=== PATIENT | male | born 1960 | race Caucasian/White ===

== ENCOUNTER 2020-10-16 10:46 | Outpatient (REF) | payer BC, SELFPAY ==
--- OUTSIDE RECORDS SUMMARY | 2020-10-16 10:51 | XMS_ITS ---
:1960 Author Organization [facility] care Address [address] [place] [address] Care Team Providers Name Role Phone RAFAELA Unavailable Unavailable PROBLEMS Type Condition ICD9-CM Code SSL36-HR Onset Condition SNOMED Code Code Dates Status Problem Gastro-esophageal K21.9 Active 26 6230511 reflux disease without esophagitis Problem Mixed E78.2 Active 798593075 hyperlipidemia Problem Gastritis, K29.70 Active [id number] unspecified, without bleeding ALLERGIES Substance Reaction Event Type Date Status Oxycodone-Acetaminophen Unknown Drug Allergy Sep, Acti ve Vicodin Unknown Drug Allergy Sep, Active Percocet Unknown Drug Allergy Sep, Active Hydrocodone-Acetaminophen Unknown Drug Allergy Sep, Ac tive ENCOUNTERS Encounter Location Date Diagnosis [address] Sep, Low ba ck pain M54.5 and [facility] [place] Abnormal magnus ght loss R63.4 [id number] Sep, [place] [address] Aug, [place] [address] Aug, Pain i n right hip M25.551 [place] [address] Sep, Mixed hyperlipidemia E78.2 [place] [address] 18 Sep, [address] for general adult [facility] [place] [phone] abnormal finding s Z00.[address] Sep, Encoun ter for examination [place], [place] for driving license Z02.4 [address], Encoun [address] for general adult [facility] [place] [address] abnormal finding s Z00.[address] Aug, Unspec ified open wound, [place], [place] right [place], initial [phone] encounter S91.30 1A and Encounter for im munization Z23 [address] Mar, Rectal polyp K62.1 [place] [address] Sep, Encoun ter for general adult [facility] [place] [address] abnormal finding s Z00.[address] Sep, Gastri tis, unspecified, [place], [place] without blee ding K29.70 [phone] IMMUNIZATIONS Vaccine Route Administration Date Status Fluzone Quadrivalent IM Intramuscular Aug 16, 2019 Administer ed Fluzone Quadrivalent IM Intramuscular Sep 15, 2018 Administer ed Tdap-Adult IM Intramuscular Aug 16, 2019 Administered Tdap-Adult Unknown Aug 30, 2011 Administered SOCIAL HISTORY Qualifiers Date Never Smoker REASON FOR REFERRAL FUNCTIONAL STATUS PLAN OF CARE Activity Details Follow Up prn Reason: VITAL SIGNS Temperature 95.6 degrees Fahrenheit 2020-09-25 Temperature 96.4 degrees Fahrenheit 2020-08-28 Temperature 97.1 degrees Fahrenheit 2019-09-27 Temperature 97.8 degrees Fahrenheit 2019-09-20 Temperature 97.5 degrees Fahrenheit 2019-08-16 Temperature 97.8 degrees Fahrenheit 2019-03-08 Temperature 97.4 degrees Fahrenheit 2018-09-15 Temperature 97.2 degrees Fahrenheit 2017-09-30 Heart Rate 115 /min 2020-09-25 Heart Rate 80 /min 2020-08-28 Heart Rate 77 /min 2019-09-27 Heart Rate 71 /min 2019-09-20 Heart Rate 82 /min 2019-08-16 Heart Rate 62 /min 2019-03-08 Heart Rate 90 /min 2018-09-15 Heart Rate 64 /min 2017-09-30 Height 68 in 2020-09-25 Height 68 in 2020-08-28 Height 68 in 2019-09-27 Height 68 in 2019-09-20 Height 68 in 2019-08-16 Height 68 in 2019-03-08 Height 68 in 2018-09-15 Height 68 in 2017-09-30 Weight 168 lbs 2020-09-25 Weight 200 lbs 2020-08-28 Weight 194 lbs 2019-09-27 Weight 197 lbs 2019-09-20 Weight 193 lbs 2019-08-16 Weight 187 lbs 2019-03-08 Weight 194 lbs 2018-09-15 Weight 179 lbs 2017-09-30 BMI 25.54 kg/m2 2020-09-25 BMI 30.41 kg/m2 2020-08-28 BMI 29.49 kg/m2 2019-09-27 BMI 29.95 kg/m2 2019-09-20 BMI 29.34 kg/m2 2019-08-16 BMI 28.43 kg/m2 2019-03-08 BMI 29.49 kg/m2 2018-09-15 BMI 27.21 kg/m2 2017-09-30 Respiratory Rate 16 /min 2020-09-25 Respiratory Rate 16 /min 2020-08-28 Oximetry 95 % 2020-09-25 Oximetry 97 % 2020-08-28 Oximetry 95 % 2019-09-27 Oximetry 97 % 2019-09-20 Oximetry 95 % 2019-08-16 Oximetry 96 % 2019-03-08 Oximetry 97 % 2018-09-15 Oximetry 95 % 2017-09-30 Blood pressure systolic 140 mm Hg 2020-09-25 Blood pressure diastolic 80 mm Hg 2020-09-25 MEDICATIONS Medication Instructions Dosage Frequency Start End Date Duration Stat us Date Omeprazole 20 Orally twice a 1 capsule 12h 90 A ctive MG day PROCEDURES Procedure Date Ordered Result Body Site FLU VACC 4 LINA 3 YRS PLUS IM Aug 16, 2019 venipuncture Sep 21, 2019 immun. 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 ADMIN Aug 16, 2019 RESULTS Name Result Date Reference Range CBC, WITH AUTO DIFF 2020-08-29 WBC 11.5 4.8-10.8 RBC 4.69 4.70-6.10 HGB 14.1 14.0-18.0 HCT 42.3 42.0-52.0 MCV 90.2 80.0-94.0 MCH 30.1 27.0-31.0 MCHC 33.3 32.0-37.0 RDW-CV 13.0 11.5-14.5 PLT 328 130-400 MPV 8.0 7.4-10.4 NE% 83.5 42.2-75.2 LY% 8.5 20.5-51.1 MO% 7.1 1.7-9.3 EO% 0.1 0.9-2.9 BA% 0.2 0.0-0.8 NE# 9.6 1.4-6.5 LY# 1.0 1.2-3.4 MO# 0.8 0.1-0.6 EO# 0.0 0.0-0.2 BA# 0.0 0.0-0.2 COMPREHENSIVE METABOLIC PROFILE 2020-08-29 SODIUM 135 136-145 POTASSIUM 3.6 3.5-5.1 CHLORIDE 99 98-111 CO2 27 22-32 CALCIUM 9.4 8.9-10.3 GLUCOSE 103 74-106 BUN 18 8-26 CREATININE 0.69 0.61-1.24 TOTAL BILIRUBIN 0.9 0.3-1.2 TOTAL PROTEIN 8.1 6.5-8.1 ALBUMIN 3.7 3.5-5.0 ALKALINE PHOS 162 32-92 AST 26 15-41 ALT 60 17-63 A/GAP 9.0 3.0-12.0 B/CR 26.1 8.0-20.0 OSMOLARITY 272 275-295 GLOBULIN 4.4 2.3-3.5 A/G 0.8 1.0-2.5 LIPASE 2020-08-29 LIPASE 28 18-51 MAGNESIUM 2020-08-29 MAGNESIUM 2.3 1.8-2.5 URINALYSIS DIP w/REFLEX MICRO 2020-08-29 COLOR Yellow YELLOW CLARITY Clear CLEAR SPECIFIC GRAVITY 1.020 1.000-1.030 pH 6.0 5.0-8.0 PROTEIN Negative NEGATIVE GLUCOSE Negative NEGATIVE KETONES Negative NEGATIVE UROBILINOGEN 1.0 E.U./dL 0.2 E.U./DL BILIRUBIN Negative NEGATIVE BLOOD Negative NEGATIVE LEUKOCYTES Negative NEGATIVE NITRITES Negative NEGATIVE CT ABD/PELVIS WO CONTRAST 2020-08-29 MR SPINE LUMBAR WO CONT 2020-08-29 COMPREHENSIVE METABOLIC PANEL 2019-09-21 GLUCOSE 97 65-99 UREA NITROGEN (BUN) 11 7-25 CREATININE 0.86 0.70-1.33 eGFR NON-AFR. MICRONESIAN 96 > OR = 60 eGFR 112 > OR = 60 BUN/CREATININE RATIO NOT APPLICABLE 6-22 SODIUM 137 135-146 POTASSIUM 4.3 3.5-5.3 CHLORIDE 101 98-110 CARBON DIOXIDE 28 20-32 CALCIUM 9.9 8.6-10.3 PROTEIN, TOTAL 7.3 6.1-8.1 ALBUMIN 4.7 3.6-5.1 GLOBULIN 2.6 1.9-3.7 ALBUMIN/GLOBULIN RATIO 1.8 1.0-2.5 BILIRUBIN, TOTAL 1.3 0.2-1.2 ALKALINE PHOSPHATASE 91 35-144 AST 16 10-35 ALT 16 9-46 TSH, 3RD GENERATION W/REFLEX TO FT4 2019-09-21 TSH W/REFLEX TO FT4 2.43 0.40-4.50 PSA, TOTAL 2019-09-21 PSA, TOTAL 0.5 < OR = 4.0 CBC (INCLUDES DIFF/PLT) 2019-09-21 WHITE BLOOD CELL COUNT 5.5 3.8-10.8 RED BLOOD CELL COUNT 5.48 4.20-5.80 HEMOGLOBIN 16.6 13.2-17.1 HEMATOCRIT 47.5 38.5-50.0 MCV 86.7 80.0-100.0 MCH 30.3 27.0-33.0 MCHC 34.9 32.0-36.0 RDW 12.7 11.0-15.0 PLATELET COUNT 255 140-400 MPV 9.3 7.5-12.5 ABSOLUTE NEUTROPHILS 3300 [phone] ABSOLUTE LYMPHOCYTES [phone] ABSOLUTE MONOCYTES 429 200-950 ABSOLUTE EOSINOPHILS 138 15-500 ABSOLUTE BASOPHILS 61 0-200 NEUTROPHILS 60 LYMPHOCYTES 28.6 MONOCYTES 7.8 EOSINOPHILS 2.5 BASOPHILS 1.1 LIPID PANEL 2019-09-21 CHOLESTEROL, TOTAL 317 <200 HDL CHOLESTEROL 42 > OR = 40 TRIGLYCERIDES 410 <150 LDL-CHOLESTEROL CHOL/HDLC RATIO 7.5 <5.0 NON HDL CHOLESTEROL 275 <130 NM GASTRIC EMPTY 2017-11-13 Colonoscopy [facility] STOOL 2017-10-01 REASON FOR VISIT back pain, refill until appt , refill, right hip pain, fasting blood draw-lipids, discuss cholesterol labs, fasting labs , 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 hemorrhoid, hard dime sized ball? 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/ [place] [facility] [place] Providers [facility] Health Member Patient Patient Patient Patient Patient Subscriber Subscriber Subscriber Group Insurance Plan Plan Plan Plan ID Relationship Address Phone Name Date of ID Name Date of No Type Insurance Insurance Insurance Coverage to Subscriber Address Phone Name Dates BLUE CROSS [address] BLUE CROSS self Frank [id number] [place] [address] [place] [address] BLUE CROSS [address] [place] CROSS self Frank [id number] [place] [address] [id number] [place] [address]
[2020-10-16 11:21] LABS: Abs Immature Grans 0.03 10^3/uL (0.0-0.06); Absolute Basophil Count 0.05 10^3/uL (0.0-0.2); Absolute Monocyte Count 0.37 10^3/uL (0.1-0.8); Absolute Neutrophil Count 5.38 10^3/uL (1.2-6.7); Basophils % 0.7; Eosinophils % 1.4; HCT 37.4 % (40.0-50.0); HGB 12.1 g/dL (13.5-17.5); Immature Grans % 0.4; Lymphocytes % 16.8; MCH 28.1 pg (27.0-33.0); MCHC 32.4 % (32.0-36.0); MCV 86.8 fL (80-95); MPV 8.8 fL (8.0-11.0); Monocytes % 5.2; Neutrophils % 75.5; Nucleated RBC 0 %; Platelet Count 316 10^3/uL (130-400); RBC 4.31 10^6/uL (4.36-5.78); RDW 13.4 % (11.8-14.1); RDW-SD 42.3 fL; WBC 7.13 10^3/uL (4.4-10.8)
[2020-10-16 11:31] LABS: ALT 41 U/L (16-63); AST 28 U/L (15-37); Albumin 3.4 g/dL (3.4-5.0); Alkaline Phosphatase 157 U/L (46-116); Anion Gap 10.4 mmol/L (3-11); BUN 9 mg/dL (7-18); Bilirubin, Total 0.5 mg/dL (0.2-1.0); CO2 27.6 mmol/L (21.0-32.0); CREATININE 0.7 mg/dL (0.70-1.30); Calcium 9.5 mg/dL (8.5-10.1); Chloride 102 mmol/L (98-107); Glucose 96 mg/dL (74-106); Potassium 4.4 mmol/L (3.5-5.1); Sodium 140 mmol/L (136-145); Total Protein 7.7 g/dL (6.4-8.2)
== END 2020-10-16 10:47 | disposition home or self-care (01) ==
LOC: LBN 10:46
PROVIDERS: PCP Nurse Practitioner; Visit Provider Family Medicine Adult Medicine
DX: I33.0 Acute and subacute infective endocarditis (principal); Z79.2 Long term (current) use of antibiotics
CPT/HCPCS: 80053; 85025

== ENCOUNTER 2020-10-23 17:55 | Outpatient (REF) | payer BC, SELFPAY ==
[2020-10-23 12:50] LABS: Abs Immature Grans 0.01 10^3/uL (0.0-0.06); Absolute Basophil Count 0.05 10^3/uL (0.0-0.2); Absolute Eosinophil Count 0.12 10^3/uL (0.0-0.7); Absolute Lymphocyte Count 0.98 10^3/uL (1.2-3.4); Absolute Monocyte Count 0.33 10^3/uL (0.1-0.8); Basophils % 0.9; Eosinophils % 2.2; HCT 32.2 % (40.0-50.0); HGB 10.5 g/dL (13.5-17.5); Immature Grans % 0.2; Lymphocytes % 18.2; MCH 28.2 pg (27.0-33.0); MCHC 32.6 % (32.0-36.0); MCV 86.3 fL (80-95); MPV 9.1 fL (8.0-11.0); Monocytes % 6.1; Neutrophils % 72.4; Nucleated RBC 0 %; Platelet Count 259 10^3/uL (130-400); RBC 3.73 10^6/uL (4.36-5.78); RDW 13.8 % (11.8-14.1); RDW-SD 43.4 fL; WBC 5.39 10^3/uL (4.4-10.8)
[2020-10-23 13:06] LABS: ALT 59 U/L (16-63); AST 40 U/L (15-37); Albumin 3.7 g/dL (3.4-5.0); Alkaline Phosphatase 186 U/L (46-116); Anion Gap 9.2 mmol/L (3-11); BUN 14 mg/dL (7-18); Bilirubin, Total 0.6 mg/dL (0.2-1.0); CO2 27.8 mmol/L (21.0-32.0); CREATININE 0.8 mg/dL (0.70-1.30); Calcium 9.1 mg/dL (8.5-10.1); Chloride 102 mmol/L (98-107); Glucose 121 mg/dL (74-106); Potassium 4.6 mmol/L (3.5-5.1); Sodium 139 mmol/L (136-145); Total Protein 7.5 g/dL (6.4-8.2)
== END 2020-10-23 17:56 | disposition home or self-care (01) ==
LOC: LBN 17:55
PROVIDERS: PCP Nurse Practitioner; Visit Provider Family Medicine Adult Medicine
DX: I33.0 Acute and subacute infective endocarditis (principal); Z79.2 Long term (current) use of antibiotics
CPT/HCPCS: 80053; 85025

== ENCOUNTER 2020-10-30 15:35 | Outpatient (REF) | payer BC, SELFPAY ==
[2020-10-30 16:01] LABS: Abs Immature Grans 0.02 10^3/uL (0.0-0.06); Absolute Basophil Count 0.07 10^3/uL (0.0-0.2); Absolute Eosinophil Count 0.09 10^3/uL (0.0-0.7); Absolute Monocyte Count 0.49 10^3/uL (0.1-0.8); Absolute Neutrophil Count 3.26 10^3/uL (1.2-6.7); Basophils % 1.3; Eosinophils % 1.7; HCT 38.9 % (40.0-50.0); HGB 12.7 g/dL (13.5-17.5); Immature Grans % 0.4; Lymphocytes % 27.6; MCH 28.2 pg (27.0-33.0); MCHC 32.6 % (32.0-36.0); MCV 86.4 fL (80-95); MPV 9.2 fL (8.0-11.0); Nucleated RBC 0 %; Platelet Count 305 10^3/uL (130-400); RDW 14.1 % (11.8-14.1); RDW-SD 44.4 fL; WBC 5.43 10^3/uL (4.4-10.8)
[2020-10-30 16:26] LABS: ALT 41 U/L (16-63); AST 22 U/L (15-37); Albumin 3.7 g/dL (3.4-5.0); Alkaline Phosphatase 174 U/L (46-116); Anion Gap 7.5 mmol/L (3-11); BUN 11 mg/dL (7-18); Bilirubin, Total 0.5 mg/dL (0.2-1.0); CO2 29.5 mmol/L (21.0-32.0); CREATININE 0.8 mg/dL (0.70-1.30); Calcium 9.4 mg/dL (8.5-10.1); Chloride 104 mmol/L (98-107); Glucose 97 mg/dL (74-106); Sodium 141 mmol/L (136-145); Total Protein 7.6 g/dL (6.4-8.2)
== END 2020-10-30 15:36 | disposition home or self-care (01) ==
LOC: LBN 15:35
PROVIDERS: PCP Nurse Practitioner; Visit Provider Family Medicine Adult Medicine
DX: I33.0 Acute and subacute infective endocarditis (principal); Z79.2 Long term (current) use of antibiotics
CPT/HCPCS: 80053; 85025